=== PATIENT | female | born 1990 | race Caucasian/White ===

== ENCOUNTER 2018-08-14 00:26 | Inpatient (IN) ==
[2018-08-14 00:49] LABS: URINE SOURCE VOIDED
[2018-08-14 00:50] LABS: BILIRUBIN URINE NEGATIVE (NEGATIVE); BLOOD URINE NEGATIVE (NEGATIVE); CLARITY CLEAR (CLEAR); COLOR YELLOW; GLUCOSE URINE NEGATIVE (NEGATIVE); KETONE URINE NEGATIVE (NEGATIVE); LEUKOCYTES URINE TRACE (NEGATIVE); NITRITE URINE NEGATIVE (NEGATIVE); PROTEIN URINE NEGATIVE (NEGATIVE); UROBILINOGEN URINE NORMAL
[2018-08-14] MEDS ORDERED: LR 1,000 ML IV SCH (01:30)
[2018-08-14] MEDS ORDERED: AMPICILLIN 2 GM/NS 2 GM/100 ML IVPB IV ONE (03:54)
[2018-08-14] MEDS ORDERED: PEPCID IV PRN (03:55)
[2018-08-14] MEDS ORDERED: STADOL IV PRN (03:55)
[2018-08-14] MEDS ORDERED: REGLAN PO ONE (03:55)
[2018-08-14] MEDS ORDERED: TYLENOL PO PRN (03:55)
[2018-08-14] MEDS ORDERED: PEPCID PO PRN (03:55)
[2018-08-14] MEDS ORDERED: KEFZOL 1 GM/D5W 1 GM/50 ML IVPB IV PRN (03:55)
[2018-08-14] MEDS ORDERED: ZOFRAN IV PRN (03:55)
[2018-08-14] MEDS ORDERED: PEPCID PO ONE (03:55)
[2018-08-14] MEDS ORDERED: SODIUM CHLORIDE 0.9% INJ SCH (04:00)
[2018-08-14] MEDS: LR 1,000 ML IV SCH ×2 (04:15→08:03)
[2018-08-14 05:12] LABS: BASO# 0.01 X1000 (0.0-0.2); BASO% 0.1 % (0.0-0.8); EOS# 0.09 X1000 (0.0-0.7); HEMATOCRIT 30.9 % (37.0-47.0); HEMOGLOBIN 9.8 g/dL (12.0-16.0); IMM GRAN# 0.09 X1000 (0.0-0.04); LYMPH# 2.29 X1000 (1.2-3.4); LYMPH% 24.3 % (20.5-51.1); MCHC 31.7 g/dL (33-37); MCV 88.3 FL (81-99); MONO# 0.73 X1000 (0.11-0.59); MONO% 7.7 % (1.7-9.3); NEUT# 6.22 X1000 (1.4-6.5); NEUT% 65.9 % (42.2-75.2); PLT 246 X1000 (130-400); RDW 13.4 % (11.5-14.5); WBC 9.43 X1000 (4.8-10.8)
--- NOTE | 2018-08-14 06:13 | HISTORY AND PHYSICAL ---
HISTORY OF PRESENT ILLNESS: The patient is a 27-year-old white female G4, P3 at 37 and 5/7 weeks who presents with uterine contractions. The patient has been under the care of [facility] and presents to this labor and delivery with concerns about possible labor. care is unremarkable except for anemia, and she has been on iron but not lately. Patient also has tested positive for group B strep. Otherwise, an unremarkable . PAST MEDICAL HISTORY: Significant for history of kidney stone. PAST SURGICAL HISTORY: She was put to sleep for a lithotripsy in [place]. PAST OB HISTORY: G4, P3 spontaneous vaginal delivery x3. Proven 8 pounds 4 ounces. MEDICAL PLANNER HISTORY: Menarche at age 15. FAMILY HISTORY: Significant for mother with coagulopathy. SOCIAL HISTORY: Tobacco use none. Alcohol use none. MEDICATIONS: vitamins. ALLERGIES: To Levaquin. PHYSICAL EXAMINATION: VITAL SIGNS: Height 5 feet 9 inches and weight 205 pounds. Temperature 97.4 degrees, blood pressure 128/64, pulse of 83, and respirations 20. heart rate 130s to 140s with positive accelerations. HEENT: Pupils equal, round, and reactive to light and accommodation. Extraocular movements intact. Oropharynx clear. NECK: Supple. No thyromegaly. LUNGS: Clear to auscultation. HEART: Regular rate and rhythm. ABDOMEN: Gravid. Nontender. PELVIC: Exam of the cervix was dilated 4 cm, 50% effaced, -2 station, and good vertex. EXTREMITIES: No clubbing, cyanosis, or edema noted. 2+ DTRs bilaterally. ASSESSMENT/PLAN: A 27-year-old white female, G4, P3, at 37 and 5/7 weeks who presents with uterine contractions. She has made a change in her cervix from 3 cm to 4 cm. The patient was admitted and started group B strep prophylaxis. The patient has expressed desire for epidural for pain control. At the present time, we will try to wait for her 2nd dose of antibiotic therapy for group B strep prophylaxis before breaking her water due to history of rapid labor. cc: MD GEREMIAS Ambrose III
[2018-08-14] MEDS ORDERED: MINERAL OIL TOP PRN (07:06)
[2018-08-14] MEDS ORDERED: XYLOCAINE-MPF 1% INJ PRN (07:06)
[2018-08-14] MEDS ORDERED: PITOCIN 30 UNITS/NS 30 UNIT/500 ML IV.SOLN IV SCH ×2 (07:15→18:00)
[2018-08-14] MEDS ORDERED: BICITRA PO ONE (07:27)
[2018-08-14] MEDS ORDERED: FENTANYL-BUPIV-NS 2 MCG-0.1% 200 ML EPIDURAL SCH (08:00)
[2018-08-14] MEDS: AMPICILLIN 1 GM/NS 1 GM/50 ML IVPB IV SCH ×4 (08:35→16:48)
[2018-08-14 09:19] LABS: UR AMPHETAMINES QUAL NONE DETECTED (NONE DETECT); UR BARBITUATES QUAL NONE DETECTED (NONE DETECT); UR BENZODIAZEPIN QUAL NONE DETECTED (NONE DETECT); UR CANNABINOIDS QUAL NONE DETECTED (NONE DETECT); UR COCAINE QUAL NONE DETECTED (NONE DETECT); UR METHADONE QUAL NONE DETECTED (NONE DETECT); UR METHAMPHETAMINE QUAL NONE DETECTED (NONE DETECT); UR OPIATES QUAL NONE DETECTED (NONE DETECT); UR OXYCODONE QUAL NONE DETECTED (NONE DETECT); UR PCP QUAL NONE DETECTED (NONE DETECT); UR PROPOXYPHENE QUAL NONE DETECTED (NONE DETECT); UR TCA QUAL NONE DETECTED (NONE DETECT)
--- NOTE | 2018-08-14 09:39 | OB/GYN PROGRESS NOTE ---
Progress Note OB - . Patient Problems: Current Active Problems Problem Status Onset Intrauterine Acute GBS (group B Streptococcus carrier), +RV culture, currently Acute OB Progress Note: Vital Signs - 24 hr 08/14/18 00:26 08/14/18 07:15 Temperature 97.0 F L 97.9 F Pulse Rate 87 76 Respiratory Rate 18 20 Blood Pressure 117/72 114/66 O2 Sat by Pulse Oximetry 100 99 Laboratory Results - last 24 hr 08/14/18 08/14/18 08/14/18 00:35 00:35 02:12 WBC RBC Hgb Hct MCV MCH MCHC RDW Std Deviation Plt Count MPV Immature Gran % (Auto) Neut % (Auto) Lymph % (Auto) [place] % (Auto) Eos % (Auto) Baso % (Auto) Immature Gran # (Auto) Neut # (Auto) Lymph # (Auto) [place] # (Auto) Eos # (Auto) Baso # (Auto) Urine Source VOIDED Urine Color YELLOW Urine Clarity CLEAR Urine pH 7.0 Ur Specific [place] 1.010 Urine Protein NEGATIVE Urine Ketones NEGATIVE Urine Blood NEGATIVE Urine Nitrite NEGATIVE Urine Bilirubin NEGATIVE Urine Urobilinogen NORMAL Urine WBC TRACE A Urine Glucose NEGATIVE Urine Opiates Screen NONE DETECTED Ur Oxycodone Screen NONE DETECTED Urine Methadone Screen NONE DETECTED U Propoxyphene Qual NONE DETECTED Ur Barbituates Screen NONE DETECTED Ur Tricyclics Screen NONE DETECTED Ur Phencyclidine Scrn NONE DETECTED Ur Amphetamines Screen NONE DETECTED U Methamphetamines Scrn NONE DETECTED U Benzodiazepines Scrn NONE DETECTED Urine Cocaine Screen NONE DETECTED U Cannabinoids Screen NONE DETECTED RPR NON-REACTIVE 08/14/18 02:12 WBC 9.43 RBC 3.50 L Hgb 9.8 L Hct 30.9 L MCV 88.3 MCH 28.0 MCHC 31.7 L RDW Std Deviation 13.4 Plt Count 246 MPV 11.0 H Immature Gran % (Auto) 1.0 H Neut % (Auto) 65.9 Lymph % (Auto) 24.3 [place] % (Auto) 7.7 Eos % (Auto) 1.0 Baso % (Auto) 0.1 Immature Gran # (Auto) 0.09 H Neut # (Auto) 6.22 Lymph # (Auto) 2.29 [place] # (Auto) 0.73 H Eos # (Auto) 0.09 Baso # (Auto) 0.01 Urine Source Urine Color Urine Clarity Urine pH Ur Specific [place] Urine Protein Urine Ketones Urine Blood Urine Nitrite Urine Bilirubin Urine Urobilinogen Urine WBC Urine Glucose Urine Opiates Screen Ur Oxycodone Screen Urine Methadone Screen U Propoxyphene Qual Ur Barbituates Screen Ur Tricyclics Screen Ur Phencyclidine Scrn Ur Amphetamines Screen U Methamphetamines Scrn U Benzodiazepines Scrn Urine Cocaine Screen U Cannabinoids Screen RPR S. I met the patient and explained my role in her care. She is resting and had moderate pain with her contractions prior to her epidural. Currently pain free. No other complaints. She desires cord blood banking. O. Vitals WNL. FHM: 125, mod katty, + accels, no decels. [place]: Q2-4mins. SVE: 5/50/-3 A/P 27yo @ 37/5wks in spontaneous labor now being augmented. Maternal monitoring reassuring. Expect vaginal delivery.
[2018-08-14] MEDS ORDERED: NS 0 ML ONE (13:38)
--- NOTE | 2018-08-14 16:26 | OB/GYN PROGRESS NOTE ---
Progress Note OB - . Patient Problems: Current Active Problems Problem Status Onset Intrauterine Acute GBS (group B Streptococcus carrier), +RV culture, currently Acute OB Progress Note: Vital Signs - 24 hr 08/14/18 00:26 08/14/18 07:15 08/14/18 11:00 Temperature 97.0 F L 97.9 F 97.7 F Pulse Rate 87 76 75 Respiratory Rate 18 20 20 Blood Pressure 117/72 114/66 98/54 O2 Sat by Pulse Oximetry 100 99 95 08/14/18 15:00 Temperature 97.6 F Pulse Rate 74 Respiratory Rate 20 Blood Pressure 109/70 O2 Sat by Pulse Oximetry 98 Laboratory Results - last 24 hr 08/14/18 08/14/18 08/14/18 00:35 00:35 02:12 WBC RBC Hgb Hct MCV MCH MCHC RDW Std Deviation Plt Count MPV Immature Gran % (Auto) Neut % (Auto) Lymph % (Auto) [place] % (Auto) Eos % (Auto) Baso % (Auto) Immature Gran # (Auto) Neut # (Auto) Lymph # (Auto) [place] # (Auto) Eos # (Auto) Baso # (Auto) Urine Source VOIDED Urine Color YELLOW Urine Clarity CLEAR Urine pH 7.0 Ur Specific [place] 1.010 Urine Protein NEGATIVE Urine Ketones NEGATIVE Urine Blood NEGATIVE Urine Nitrite NEGATIVE Urine Bilirubin NEGATIVE Urine Urobilinogen NORMAL Urine WBC TRACE A Urine Glucose NEGATIVE Urine Opiates Screen NONE DETECTED Ur Oxycodone Screen NONE DETECTED Urine Methadone Screen NONE DETECTED U Propoxyphene Qual NONE DETECTED Ur Barbituates Screen NONE DETECTED Ur Tricyclics Screen NONE DETECTED Ur Phencyclidine Scrn NONE DETECTED Ur Amphetamines Screen NONE DETECTED U Methamphetamines Scrn NONE DETECTED U Benzodiazepines Scrn NONE DETECTED Urine Cocaine Screen NONE DETECTED U Cannabinoids Screen NONE DETECTED RPR NON-REACTIVE 08/14/18 02:12 WBC 9.43 RBC 3.50 L Hgb 9.8 L Hct 30.9 L MCV 88.3 MCH 28.0 MCHC 31.7 L RDW Std Deviation 13.4 Plt Count 246 MPV 11.0 H Immature Gran % (Auto) 1.0 H Neut % (Auto) 65.9 Lymph % (Auto) 24.3 Russell % (Auto) 7.7 Eos % (Auto) 1.0 Baso % (Auto) 0.1 Immature Gran # (Auto) 0.09 H Neut # (Auto) 6.22 Lymph # (Auto) 2.29 Russell # (Auto) 0.73 H Eos # (Auto) 0.09 Baso # (Auto) 0.01 Urine Source Urine Color Urine Clarity Urine pH Ur Specific [place] Urine Protein Urine Ketones Urine Blood Urine Nitrite Urine Bilirubin Urine Urobilinogen Urine WBC Urine Glucose Urine Opiates Screen Ur Oxycodone Screen Urine Methadone Screen U Propoxyphene Qual Ur Barbituates Screen Ur Tricyclics Screen Ur Phencyclidine Scrn Ur Amphetamines Screen U Methamphetamines Scrn U Benzodiazepines Scrn Urine Cocaine Screen U Cannabinoids Screen RPR S. Patient doing well. No complaints. Some pressure with contractions. O. Vitals WNL. FHM: 125, mod katty, + accels, variable decels. [place]: Q2-4mins. SVE: 6/50/-2, AROM with clear fluid. A/P 27yo @ 37/5wks in spontaneous labor now being augmented. Maternal monitoring reassuring. Expect vaginal delivery.
[2018-08-14] MEDS ORDERED: ATARAX PO PRN (17:46)
[2018-08-14] MEDS ORDERED: HYDROXYZINE IM PRN (17:46)
[2018-08-14] MEDS ORDERED: M-M-R II VACCINE SUBQ ONE (17:46)
[2018-08-14] MEDS ORDERED: BENADRYL IV PRN (17:46)
[2018-08-14] MEDS ORDERED: PERI MEDS (DERMOPLAST/NUPERCAINAL/TUCKS) MISC PRN (17:46)
[2018-08-14] MEDS ORDERED: PERCOCET-5 PO PRN (17:46)
[2018-08-14] MEDS ORDERED: AMBIEN PO PRN (17:46)
[2018-08-14] MEDS ORDERED: BENADRYL PO PRN (17:46)
[2018-08-14] MEDS ORDERED: CYTOTEC PO PRN (17:46)
[2018-08-14] MEDS ORDERED: PITOCIN IM PRN (17:46)
[2018-08-14] MEDS ORDERED: BOOSTRIX VACCINE IM ONE (17:46)
[2018-08-14] MEDS ORDERED: PITOCIN 20 UNITS/NS 20 UNITS/1,000 ML IV.SOLN IV SCH (18:00)
--- NOTE | 2018-08-14 21:45 | OPERATIVE NOTE ---
PROCEDURE DATE: 08/14/2018 The patient is a 27-year-old G4, P3, at 37 weeks 5 days who presented in spontaneous labor this morning. She was augmented for protracted labor and delivered. PREOP DIAGNOSIS: 1. Intrauterine 37 and 5. 2. Group B strep positive. POSTOP DIAGNOSIS: 1. Intrauterine 37 and 5. 2. Group B strep positive. 3. Delivery of a viable female infant weight 7 pounds 2 ounces. Apgars of 9 and 10 at 1 and 5 minutes respectively. PROCEDURE: spontaneous vaginal delivery. ANESTHESIA: epidural. EBL: 300 mL. INDICATIONS: This 27-year-old G4, P3, spontaneous labor augmented with Pitocin. DESCRIPTION OF PROCEDURE: Patient was complete and wanting to push, she was placed in dorsal lithotomy position, prepped and draped in usual sterile fashion for a vaginal delivery. The baby's head was LILIANA. The patient pushed spontaneously delivered the head over an intact perineum. The anterior shoulder was then delivered followed by the posterior. There was no nuchal cord. was suctioned with the bulb suction and the cord was clamped and cut and the was handed off to the nursing staff. A cord blood kit was then used as directed and a sample of the cord was also sent as a tissue sample. The placenta was delivered in Schultze presentation. The vagina was examined again and found to be hemostatic. Patient tolerated procedure well. Sponge and needle counts were correct. She is resting in the labor and delivery room. Baby is doing well and is in the room with her. cc: DO Feng Pack III, MD MTDD
[2018-08-15] MEDS: MOTRIN PO PRN ×3 (01:13→18:02)
[2018-08-15] MEDS: NORCO-5 PO PRN ×3 (01:13→22:55)
[2018-08-15 07:08] LABS: BASO# 0.01 X1000 (0.0-0.2); BASO% 0.1 % (0.0-0.8); EOS# 0.04 X1000 (0.0-0.7); EOS% 0.4 % (0.0-10.0); HEMATOCRIT 28.5 % (37.0-47.0); IMM GRAN# 0.06 X1000 (0.0-0.04); IMM GRAN% 0.6 % (0.0-0.5); LYMPH# 1.92 X1000 (1.2-3.4); MCH 27.6 PG (27-31); MCHC 31.6 g/dL (33-37); MCV 87.4 FL (81-99); MONO% 9.4 % (1.7-9.3); MPV 11.3 FL (7.4-10.4); NEUT# 7.63 X1000 (1.4-6.5); NEUT% 71.5 % (42.2-75.2); PLT 232 X1000 (130-400); RBC 3.26 XMIL (4.2-5.4); RDW 12.9 % (11.5-14.5); WBC 10.66 X1000 (4.8-10.8)
--- NOTE | 2018-08-15 12:45 | OB/GYN PROGRESS NOTE ---
Progress Note OB - . Patient Problems: Current Active Problems Problem Status Onset Intrauterine Acute GBS (group B Streptococcus carrier), +RV culture, currently Acute OB Progress Note: Vital Signs - 24 hr 08/14/18 15:00 08/14/18 17:15 08/14/18 17:20 Temperature 97.6 F 97.1 F L Pulse Rate 74 87 93 H Respiratory Rate 20 20 20 Blood Pressure 109/70 108/63 Blood Pressure [Right Arm] 108/63 106/61 O2 Sat by Pulse Oximetry 98 100 100 08/14/18 17:30 08/14/18 17:40 08/14/18 17:50 Temperature Pulse Rate 81 86 75 Respiratory Rate 20 20 20 Blood Pressure Blood Pressure [Right Arm] 111/62 108/57 105/58 O2 Sat by Pulse Oximetry 100 100 100 08/14/18 18:00 08/14/18 18:10 08/14/18 18:15 Temperature Pulse Rate 77 77 70 Respiratory Rate 20 20 20 Blood Pressure Blood Pressure [Right Arm] 114/71 110/61 110/61 O2 Sat by Pulse Oximetry 100 100 100 08/15/18 00:00 08/15/18 08:05 Temperature 98.0 F 96.9 F L Pulse Rate 82 83 Respiratory Rate 18 16 Blood Pressure 108/64 103/57 Blood Pressure [Right Arm] O2 Sat by Pulse Oximetry 99 Laboratory Results - last 24 hr 08/15/18 05:07 WBC 10.66 RBC 3.26 L Hgb 9.0 L Hct 28.5 L MCV 87.4 MCH 27.6 MCHC 31.6 L RDW Std Deviation 12.9 Plt Count 232 MPV 11.3 H Immature Gran % (Auto) 0.6 H Neut % (Auto) 71.5 Lymph % (Auto) 18.0 L [place] % (Auto) 9.4 H Eos % (Auto) 0.4 Baso % (Auto) 0.1 Immature Gran # (Auto) 0.06 H Neut # (Auto) 7.63 H Lymph # (Auto) 1.92 [place] # (Auto) 1.00 H Eos # (Auto) 0.04 Baso # (Auto) 0.01 S. Patient walking in room. She feels fine with little pain. She has light bleeding and is ambulating and tolerating her diet well. She has normal bladder function and is well. Baby is doing well. O. Vitals WNL Heent: Normocephalic atraumatic CHest: CTAB Heart: RRR, no M/R/G Abdoment, soft, nontender, uterus below the umbilicus Ext: No edema. A/P: 27yo s/p PPD 1, patient is doing well. Encourage ambulation, D/C tomorrow.
[2018-08-15] MEDS ORDERED: FLU VACCINE IM ONE (19:30)
[2018-08-15 23:07] VITALS: BP 116/57
[2018-08-16] MEDS: MOTRIN PO PRN (05:42)
[2018-08-16] MEDS: NORCO-5 PO PRN (05:42)
--- NOTE | 2018-08-16 09:38 | OB/GYN PROGRESS NOTE ---
Progress Note OB - . Patient Problems: Current Active Problems Problem Status Onset Intrauterine Acute GBS (group B Streptococcus carrier), +RV culture, currently Acute OB Progress Note: Vital Signs - 24 hr 08/15/18 12:41 08/15/18 16:25 08/15/18 22:56 Temperature 97.9 F 97.6 F 96.3 F L Pulse Rate 77 80 65 Respiratory Rate 18 16 16 Blood Pressure 119/71 112/61 116/57 O2 Sat by Pulse Oximetry 98 97 100 PPD #2 without difficulty. No repair needed. Baby is doing well. Mom is breast feeding. Mom is without complaints. Normal locia. VS are stable Fundus is firm and nontender. No calf tenderness. Abd is soft and nontender. A/P: Stable for discharge home. Pt had care and will follow up with her OB physician in 6 weeks. No discharge med Rx needed.
== END 2018-08-16 13:10 | disposition home or self-care (01) | DRG 807 ==
LOC: P.OPLD 00:26 → P.LD 00:27
PROVIDERS: ADMIT Obstetrics & Gynecology; ATTEND Obstetrics & Gynecology
CPT/HCPCS: 59025; 80104; 80301; 80305; 81003; 85025; 86592; A9270; G0431; G0434; G0477; J0290; J2590; J7030; J7120